=== PATIENT | female | born 1975 | race Caucasian/White ===

== ENCOUNTER 2025-04-22 13:16 | Outpatient (CLI) | payer BC | END 2025-04-22 13:17 | disposition home or self-care (01) | LOC: MRI 13:16 | PROVIDERS: ATTEND Student in an Organized Health Care Education/Training Program | DX: R51.9 Headache, unspecified (principal); R29.2 Abnormal reflex; R26.81 Unsteadiness on feet | CPT/HCPCS: 70544 ==